=== PATIENT | female | born 1960 | race Caucasian/White ===

== ENCOUNTER 2016-09-17 08:39 | Outpatient (CLI) | payer OTHER | END 2016-09-17 08:40 | disposition home or self-care (01) | LOC: LAB.WCP 08:39 | PROVIDERS: ATTEND Family Medicine | DX: R30.0 Dysuria (principal) | CPT/HCPCS: 87077; 87086 ==

== ENCOUNTER 2016-12-25 08:00 | Outpatient (CLI) | payer OTHER ==
[2016-12-25 19:15] LABS: BASOPHILS # (AUTO) 0.1 10^3/uL (0.0-0.1); BASOPHILS % (AUTO) 1.2 %; EOSINOPHILS # (AUTO) 0.1 10^3/uL (0.0-0.7); EOSINOPHILS % (AUTO) 0.8 %; HGB - HEMOGLOBIN 15.3 g/dL (12.0-16.0); LYMPHOCYTES # (AUTO) 2.6 10^3/uL (1.5-3.5); LYMPHOCYTES % (AUTO) 25.5 %; MEAN CORPUSCULAR HEMOGLOBIN 29.9 pg (27.0-31.0); MEAN CORPUSCULAR HGB CONC 32.5 g/dL (32.0-36.0); MEAN CORPUSCULAR VOLUME 91.9 fL (81.0-99.0); MEAN PLATELET VOLUME 8.9 fL (7.9-10.8); MONOCYTES # (AUTO) 0.7 10^3/uL (0.0-1.0); MONOCYTES % (AUTO) 6.8 %; NEUTROPHILS # (AUTO) 6.7 10^3/uL (1.5-6.6); NEUTROPHILS % (AUTO) 65.7 %; NUCLEATED RED BLOOD CELLS AUTO 0.1 /100WBC; RED BLOOD COUNT 5.12 10^6/uL (4.20-5.40); RED CELL DISTRIBUTION WIDTH 16.8 % (12.0-15.0); UNCORRECTED WHITE BLOOD COUNT 10.1 x10^3/uL; WHITE BLOOD COUNT 10.1 x10^3/uL (4.8-10.8)
[2016-12-25 19:48] LABS: ALBUMIN/GLOBULIN RATIO 1.9 (1.0-2.2); BILIRUBIN,TOTAL 0.6 mg/dL (0.2-1.0); BUN - BLOOD UREA NITROGEN 12 mg/dL (6-20); CALCIUM 9.4 mg/dL (8.5-10.3); CARBON DIOXIDE - CO2 27 mmol/L (21-32); CHLORIDE 100 mmol/L (101-111); CHOL/HDL RATIO 2.5 (<4.4); CHOLESTEROL 200 mg/dL; CREATININE 0.7 mg/dL (0.4-1.0); GFR - MDRD 87 (>89); GLUCOSE 92 mg/dL (70-100); HDL CHOLESTEROL 79 mg/dL; LDL/HDL RATIO 1.3 (<4.4); SODIUM 138 mmol/L (135-145); TOTAL PROTEIN 7.2 g/dL (6.7-8.2); TRIGLYCERIDES 85 mg/dL; VLDL CHOLESTEROL 17 mg/dL
[2016-12-25 20:32] LABS: HEMOGLOBIN A1C 0.6 g/dL
== END 2016-12-25 08:01 | disposition home or self-care (01) ==
LOC: LAB.WCP 08:00
PROVIDERS: ATTEND Family Medicine
DX: Z00.00 Encounter for general adult medical examination without abnormal findings (principal); I95.9 Hypotension, unspecified
CPT/HCPCS: 36415; 80053; 80061; 83036; 84443; 85025

== ENCOUNTER 2017-01-28 18:56 | Emergency (ER) | payer OTHER ==
[2017-01-28] MEDS ORDERED: DEXAMETHASONE 10 MG/ML VIAL PO STA (19:16)
[2017-01-28] MEDS ORDERED: HYDROcod/ACETAM 5/325 MG TABLET PO STA (19:16)
[2017-01-28] MEDS ORDERED: oxyCODONE 5 MG TABLET PO STA (19:20)
--- NOTE | 2017-01-28 19:27 | ED Physician Documentation ---
History of Present Illness - Stated complaint Stated Complaint: LT HAND PX - Chief complaint Chief Complaint: Ext Problem - History obtained from History obtained from: Patient - History of Present Illness Timing: How many days ago (several) Pain level max: 8 Pain level now: 8 Improved by: rest Worsened by: movement - Additonal information Additional information: Patient is a 56-year-old female who states that she has severe osteoarthritis in the left wrist and it has been swelling and painful over the past 2 days. Denies any injury. Denies any fevers. No redness. No drainage. Took Aleve without relief. Has used a brace before and this did help, but does not know where her brace is. 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 Neuro: Craniotomy - Present Medications Home Medications: Ambulatory Orders Medication Instructions Recorded Confirmed Paroxetine HCl 20 mg PO DAILY 07/28/14 01/28/17 Valacyclovir HCl [Valacyclovir] 500 mg PO BID 07/28/14 01/28/17 Prednisone 40 mg PO DAILY #10 tablet 01/28/17 oxyCODONE [Roxicodone] 5 mg PO Q4-6H PRN #10 tablet 01/28/17 - Allergies Allergies/Adverse Reactions: Allergies Allergy/AdvReac Type Severity Reaction Status Date / Time Latex, Natural Rubber Allergy Rash Verified 01/28/17 19:02 phenytoin [From Dilantin] Allergy Edema Verified 01/28/17 19:02 morphine AdvReac Severe Hallucinati Verified 02/06/15 04:01 ons - Social History Does the pt smoke?: Yes Smoking Status: Current every day smoker Does the pt drink ETOH?: Yes Does the pt have substance abuse?: No - Immunizations Immunizations are current?: No - POLST Patient has POLST: No PD ED PE NORMAL - Vitals Vital signs reviewed: Yes - General General: Alert and oriented X 3, Well developed/nourished, Other (appears in pain) - HEENT HEENT: PERRL, Moist mucous membranes - Neck Neck: Supple, no meningeal sign - Cardiac Cardiac: RRR - Respiratory Respiratory: No respiratory distress, Clear bilaterally - Derm Derm: Warm and dry - Extremities Extremities: Other (Tender to palpation diffusely about the left wrist, there is mild swelling and warmth. There is no erythema. Limited range of motion secondary to pain. No significant joint effusion. Neurovascularly intact) - Neuro Neuro: Alert and oriented X 3 - Psych Psych: Normal mood, Normal affect Results - Vitals Vitals: Vital Signs - 24 hr 01/28/17 01/28/17 19:00 19:34 Temperature 36.8 C 37.1 C Heart Rate 69 86 Respiratory 16 17 Rate Blood Pressure 147/78 H 148/85 H O2 Saturation 98 97 Oxygen O2 Source Room air PD MEDICAL DECISION MAKING - ED course Complexity details: considered differential, d/w patient, d/w family ED course: Patient is a 56-year-old female who presents to the emergency department for left wrist pain and swelling. History of severe osteoarthritis. We did discuss potential joint aspiration to rule out any evidence of septic joint, patient declines this at this time. Will place her on pain medication, steroids and a wrist splint for home. Does not have a history of gout. Patient is well-appearing, nontoxic. Afebrile. Patient counseled regarding signs and symptoms for which I believe and urgent re-evaluation would be necessary. Patient with good understanding of and agreement to plan and is comfortable going home at this time This document was made in part using voice recognition software. While efforts are made to proofread this document, sound alike and grammatical errors may occur. Departure - Departure Disposition: 01 Home, Self Care Clinical Impression: Osteoarthritis Qualifiers: Osteoarthritis location: wrist Osteoarthritis type: unspecified Laterality: left Qualified Code(s): M19.032 - Primary osteoarthritis, left wrist Condition: Good Instructions: ED Degenerative Joint Disease Follow-Up: Shona Garrido MD [Primary Care Provider] - Within 1 week Prescriptions: oxyCODONE [Roxicodone] 5 mg PO Q4-6H PRN #10 tablet PRN Reason: wrist pain Prednisone 40 mg PO DAILY #10 tablet Comments: Return if you worsen. This should improve over the next few days. Wear the splint as needed for comfort. If you are not improving or are worsening, return here for further evaluation as this may be signs of a more serious issue including an infection in your wrist. Do not drink alcohol or drive while on narcotic pain medicine. Note that many narcotic pain relievers also contain tylenol/acetaminophen. Please ensure that your total dose of acetaminophen from all sources does not exceed 3 grams (3000mg) per day. You may constipated on this medication, take a stool softener such as "Colace" twice a day while you are on it. Also recommend a yjlo-kvw-bnjshkb laxative such as senna or MiraLAX any day that you do not have a bowel movement. If you received narcotic pain medication in the emergency department, do not drive or operate machinery for the next 24 hours. Discharge Date/Time: 01/28/17 19:39
[2017-01-28] MEDS ORDERED: oxyCODONE 5 MG TABLET ONE (19:31)
[2017-01-28] MEDS ORDERED: DEXAMETHASONE 10 MG/ML VIAL ONE (19:31)
[2017-01-28] MEDS ORDERED: CHERRY SYRUP 10 ML UDC PO ONE (19:31)
[2017-01-28 19:35] VITALS: BP 148/85
== END 2017-01-28 19:39 | disposition home or self-care (01) ==
LOC: ED 18:56
DX: M19.032 Primary osteoarthritis, left wrist (principal); M79.7 Fibromyalgia; F17.200 Nicotine dependence, unspecified, uncomplicated
CPT/HCPCS: 99283; A9270

== ENCOUNTER 2017-12-01 07:50 | Outpatient (CLI) | payer OTHER ==
[2017-12-01] MEDS ORDERED: GADOBUTROL 7.5 MMOL/7.5 ML VIAL ONE (09:01)
[2017-12-01] MEDS ORDERED: GADOBUTROL 7.5 MMOL/7.5 ML VIAL IVP ONE (09:16)
--- NOTE | 2017-12-01 11:58 | CT Report ---
Procedure Date: 12/01/2017 Accession Number: [id number] / [id number] Procedure: CT - Sinuses CPT Code: FULL RESULT: EXAM: CT SINUS EXAM DATE: 12/01/2017 08:05 AM. HISTORY: Congestion, sinus pain and burning, history of brain tumor COMPARISONS: None. TECHNIQUE: Routine multi-axial CT imaging performed through the sinuses. Iodinated IV contrast: None. Reconstructions: Coronal. In accordance with CT protocol optimization, one or more of the following dose reduction techniques were utilized for this exam: automated exposure control, adjustment of mA and/or KV based on patient size, or use of iterative reconstructive technique. FINDINGS: RIGHT Frontal: Normal. Ethmoid: Normal. Maxillary: Normal. Sphenoid: Normal. Drainage Pathways: The frontal recess, ostiomeatal complex and sphenoethmoidal recess are patent and normal. LEFT Frontal: Normal. Ethmoid: Normal. Maxillary: Normal. Sphenoid: Normal. Drainage Pathways: The frontal recess, ostiomeatal complex and sphenoethmoidal recess are patent and normal. Nasal Cavity: Nasal septal deviation to the right with a large right sided spur Osseous Structures: Unremarkable. Orbits: Unremarkable. Other: None. IMPRESSION: Clear paranasal sinuses. Nasal septal deviation to the right with a large right sided spur. RADIA
--- NOTE | 2017-12-01 22:03 | MRI Report ---
Procedure Date: 12/01/2017 Accession Number: [id number] / [id number] Procedure: MRI - Brain W/WO CPT Code: FULL RESULT: EXAM: MRI BRAIN WITHOUT AND WITH CONTRAST EXAM DATE: 12/01/2017 09:28 AM. CLINICAL HISTORY: 57-year-old with chronic sinusitis type symptoms and headache with visual disturbances. Evaluate for intracranial pathology. COMPARISON: None. TECHNIQUE: Multiplanar, multisequence T1-weighted and fluid-sensitive MR sequences of the brain were performed. Sequences optimized for routine evaluation. Other: None. IV Contrast: 6.5 cc Gadavist. FINDINGS: Brain Volume: Normal for age. Parenchyma: No acute parenchymal hemorrhage, mass, or midline shift seen. The postsurgical changes seen within the posterior fossa. There is a linear area of FLAIR signal hyperintensity seen extending from the peripheral right frontal lobe to the right lateral ventricle that may represent prior TRANSMITTER CHIEF shunt catheter tract. There is mild bilateral areas of T2/FLAIR signal hyperintensity seen involving the supratentorial brain parenchyma. There is patchy FLAIR signal hyperintensity seen within the isael. There is patchy FLAIR signal hyperintensity seen involving the left cerebellum and medial right cerebellum and may be postsurgical. There are punctate foci of hemosiderin deposition involving the inferior vermis and left cerebellum that may be related to prior radiation treatment. No evidence of restricted diffusion seen to suggest acute infarct. No abnormal enhancement. Ventricles/Cisterns: Post surgical changes of suboccipital craniectomy. There is slight underlying dural thickening and enhancement that may be postsurgical. There is no convincing evidence of abnormal extra-axial fluid collection/mass seen. Ventricles appear age appropriate. Orbits: Symmetric and unremarkable. Sella Turcica: The pituitary gland, cavernous sinuses, suprasellar cistern and optic chiasm are unremarkable. IAC: Symmetric and unremarkable. Vasculature: Normal signal flow void is seen in the major arterial structures at the skull base. The dural sinuses are patent and enhance normally. Sinuses: No acute sinus disease. Bones: Postsurgical changes. Other: None. IMPRESSION: 1. Post surgical changes of suboccipital craniectomy with slight underlying dural thickening and enhancement that may be postsurgical. 2. There are post surgical changes involving the posterior fossa with no discrete mass or masslike enhancement seen. 3. No acute infarct, acute intracranial hemorrhage, definite mass, hydrocephalus, or definite abnormal postcontrast enhancement. 4. There are mild white matter changes seen that may represent sequela of chronic small vessel schema disease. 5. There are punctate foci of hemosiderin deposition seen within the vermis and left cerebellum. Given prior postsurgical changes in the posterior fossa these may represent microhemorrhages from prior radiation treatment. Alternatively these may represent microhemorrhages from hypertension or old hemorrhagic lacunar infarcts. RADIA
== END 2017-12-01 07:51 | disposition home or self-care (01) ==
LOC: DI 07:50
PROVIDERS: ATTEND Family Medicine
DX: J32.9 Chronic sinusitis, unspecified (principal); J34.2 Deviated nasal septum; G43.009 Migraine without aura, not intractable, without status migrainosus; H53.9 Unspecified visual disturbance; C71.9 Malignant neoplasm of brain, unspecified; D32.9 Benign neoplasm of meninges, unspecified
CPT/HCPCS: 70486; 70553; A9585

== ENCOUNTER 2018-03-01 13:02 | Outpatient (CLI) | payer OTHER | END 2018-03-01 13:03 | disposition home or self-care (01) | LOC: SC 13:02 | PROVIDERS: ATTEND Internal Medicine Pulmonary Disease | DX: G47.33 Obstructive sleep apnea (adult) (pediatric) (principal) | CPT/HCPCS: 99203; 99212 ==

== ENCOUNTER 2018-04-06 20:33 | Outpatient (CLI) | payer OTHER | END 2018-04-06 20:34 | disposition home or self-care (01) | LOC: SC 20:33 | PROVIDERS: ATTEND Internal Medicine Pulmonary Disease | DX: G47.33 Obstructive sleep apnea (adult) (pediatric) (principal); G47.61 Periodic limb movement disorder | CPT/HCPCS: 95810 ==

== ENCOUNTER 2018-05-12 15:11 | Outpatient (CLI) | payer OTHER, MEDICARE ==
--- NOTE | 2018-05-13 08:45 | Mammography Report ---
Reason: SCREENING MAMMO Procedure Date: 05/12/2018 Accession Number: [id number] / [id number] Procedure: ENDER - Screening Mammo w/Cem CPT Code: FULL RESULT: EXAM: Screening Mammo w/Cem DATE: 05/12/2018 3:57 PM CLINICAL HISTORY: Screening encounter. History of early menses. History of benign breast biopsy. TECHNIQUE: Bilateral CC and MLO views were obtained. COMPARISON: 02/09/2017 through 10/14/2012. FINDINGS: The breasts demonstrate heterogeneously dense fibroglandular parenchyma bilaterally. A biopsy marker and stable postbiopsy changes are seen in the left breast. No suspicious masses, clustered microcalcifications, or regions of architectural distortion are identified. IMPRESSION: Benign findings RECOMMENDATION: Routine annual screening unless otherwise clinically indicated. BIRADS CATEGORY 2: Benign findings STANDARD QUALIFYING STATEMENTS: 1. This examination was not reviewed with the aid of Computer-Aided Detection (CAD). 2. A negative or benign imaging report should not preclude biopsy if clinically suspicious findings are present. 3. Dense breasts may obscure an underlying neoplasm. 4. This examination was reviewed with the aid of 3D breast imaging (tomosynthesis).
== END 2018-05-12 15:12 | disposition home or self-care (01) ==
LOC: DI 15:11
DX: Z12.31 Encounter for screening mammogram for malignant neoplasm of breast (principal)
CPT/HCPCS: 77063; 77067

== ENCOUNTER 2018-07-19 12:47 | Outpatient (CLI) | payer OTHER, MEDICARE | END 2018-07-19 12:48 | disposition home or self-care (01) | LOC: SC 12:47 | PROVIDERS: ATTEND Nurse Practitioner Family | DX: G47.33 Obstructive sleep apnea (adult) (pediatric) (principal); G47.61 Periodic limb movement disorder | CPT/HCPCS: 99212; 99214 ==

== ENCOUNTER 2018-09-06 09:46 | Emergency (ER) | payer OTHER, MEDICARE ==
[2018-09-06] MEDS ORDERED: METOCLOPRAMIDE 10 MG/2 ML VIAL IVP STA (12:17)
[2018-09-06] MEDS ORDERED: DEXAMETHASONE 10 MG/ML VIAL IVP STA (12:17)
[2018-09-06] MEDS ORDERED: diphenhydrAMINE INJ 50 MG/ML VIAL IVP STA (12:17)
[2018-09-06] MEDS ORDERED: SODIUM CHLORIDE 0.9% 1,000 ML IV ONE (12:17)
--- NOTE | 2018-09-06 12:20 | ED Physician Documentation ---
PD HPI HEADACHE - Stated complaint Stated Complaint: TREVINO - Chief complaint Chief Complaint: Neuro - History obtained from History obtained from: Patient - History of Present Illness Timing - onset: Other (This is a 57-year-old woman with history of chronic migraines. 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 Since then she is had worse headaches which are acutely worse over the last couple of weeks and especially in the last 3 days. What was intermittent is now constant for the last 3 days. She describes burning pain over the left maxillary sinus radiating back to the left occiput. She does think it might be related to her CPAP which she has been on for a few weeks now. She describes no sinus congestion. She wonders if she has had a fever but none of been measured, and she also has hot flashes so she is not sure. She noted a facial droop on the left over the last day or 2. She is tried howe-wrz-pbzfvue medications without relief.) Review of Systems Constitutional: reports: Sweats. denies: Chills Ears: reports: Ear pain Nose: reports: Sinus pressure / pain. 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 - Present Medications Home Medications: Ambulatory Orders Medication Instructions Recorded Confirmed Paroxetine HCl 20 mg PO DAILY 07/28/14 01/28/17 Valacyclovir HCl [Valacyclovir] 500 mg PO BID 07/28/14 01/28/17 SUMAtriptan [Imitrex] 25 mg PO BID PRN #20 tablet 09/06/18 - Allergies Allergies/Adverse Reactions: Allergies Allergy/AdvReac Type Severity Reaction Status Date / Time Latex, Natural Rubber Allergy Rash Verified 09/06/18 12:00 phenytoin [From Dilantin] Allergy Edema Verified 09/06/18 12:00 morphine AdvReac Severe Hallucinati Verified 09/06/18 12:00 ons - Social History Does the pt smoke?: Yes Smoking Status: Current every day smoker Does the pt drink ETOH?: Yes ETOH Use: Beer, Liquor Does the pt have substance abuse?: No - Family History Family history: reports: Non contributory - Immunizations Immunizations are current?: No - POLST Patient has POLST: No PD ED PE NORMAL - Vitals Vital signs reviewed: Yes - General General: Alert and oriented X 3, No acute distress - HEENT HEENT: PERRL, EOMI - Neck Neck: Supple, no meningeal sign, No bony TTP - Cardiac Cardiac: RRR, No murmur - Respiratory Respiratory: No respiratory distress, Clear bilaterally - Abdomen Abdomen: Normal bowel sounds, Soft, Non tender - Back Back: No CVA TTP, No spinal TTP - Derm Derm: Normal color, Warm and dry - Extremities Extremities: No edema, No calf tenderness / cord - Neuro Neuro: Alert and oriented X 3, No sensory deficit, Other (She has a slight left facial droop which spares the forehead. There is no weakness in the upper or lower extremities on either side.) Eye Opening: Spontaneous Motor: Obeys Commands Verbal: Oriented GCS Score: 15 - Psych Psych: Normal mood, Normal affect Results - Vitals Vitals: Vital Signs - 24 hr 09/06/18 09/06/18 09/06/18 09:50 12:03 13:59 Temperature 36.7 C Heart Rate 111 H 95 72 Respiratory 18 18 14 Rate Blood Pressure 147/90 H 124/96 H 106/71 O2 Saturation 100 98 94 Oxygen O2 Source Room air - Rads (name of study) CT Head Radiology: EMP read contemporaneously (No acute intracranial abnormality. 1.2 cm hypodense focus of both the posterior inferior left occipital lobe could represent evolving encephalomalacia and less likely recurrent mass, consider follow-up MRI.) PD MEDICAL DECISION MAKING - ED course Complexity details: reviewed old records (MRI from 11/27 reviewed: post surgical chgs, white matter dz, hemosiderin.) ED course: 57-year-old woman with history of migraines and kind of a complicated surgical/neurosurgical history presents with a worsening headache. CT imaging is shown. She had complete relief of her headache with Reglan and Benadryl here. Departure - Departure Disposition: 01 Home, Self Care Clinical Impression: Migraine Qualifiers: Migraine type: without aura Status migrainosus presence: with status migrainosus Intractability: not intractable Qualified Code(s): G43.001 - Migraine without aura, not intractable, with status migrainosus Condition: Good Record reviewed to determine appropriate education?: Yes Instructions: ED Headache Migraine, Imitrex Prescriptions: SUMAtriptan [Imitrex] 25 mg PO BID PRN #20 tablet PRN Reason: Headache Comments: As discussed on your CAT scan from today you have a: 1.2 cm hypodense focus above the posterior inferior left occipital lobe could represent evolving encephalomalacia and less likely recurrent mass, consider follow-up MRI. Call your doctor to arrange a follow-up appointment, make the next available appointment. In the interim, return anytime if worse or if new symptoms develop.
[2018-09-06 14:00] VITALS: BP 106/71
--- NOTE | 2018-09-06 14:05 | CT Report ---
Reason: headache Procedure Date: 09/06/2018 Accession Number: [id number] / [id number] Procedure: CT - HEAD WO CPT Code: FULL RESULT: EXAM: CT HEAD EXAM DATE: 09/06/2018 01:27 PM. CLINICAL HISTORY: Headache, history of brain cancer with 2 surgeries. COMPARISON: SINUSES 12/01/2017 8:02 AM BRAIN W/WO 12/01/2017 9:11 AM. TECHNIQUE: Multiaxial CT images were obtained from the foramen magnum to the vertex. Reformats: Sagittal and coronal. IV contrast: None. In accordance with CT protocol optimization, one or more of the following dose reduction techniques were utilized for this exam: automated exposure control, adjustment of mA and/or KV based on patient size, or use of iterative reconstructive technique. FINDINGS: Parenchyma: No acute intracranial hemorrhage identified. There is possible evolving encephalomalacia or other hypodensity about the left inferior posterior occipital lobe perhaps best seen on series 7, image 11 measuring 1.2 cm in diameter and not well seen on prior MRI. No white matter disease clearly identified. Extraaxial Spaces: Normal for age. No subdural or epidural collections identified. Ventricles: Normal in size and position. Sinuses and Orbits: Imaged paranasal sinuses, orbits, and mastoids show no significant abnormality. Bones: Postsurgical changes from suboccipital craniotomy again present. Hardware overlies the craniotomy defect about the superior flap. The craniotomy defect remains uncovered with bone more inferiorly. Other: None. IMPRESSION: 1. No acute intracranial hemorrhage or hydrocephalus. 2. 1.2 cm hypodense focus about the posterior inferior left occipital lobe just above the tentorium not well seen on prior MRI and could represent evolving encephalomalacia, less likely recurrent mass. Repeat MRI may be considered. RADIA
== END 2018-09-06 14:37 | disposition home or self-care (01) ==
LOC: ED 09:46
DX: G43.001 Migraine without aura, not intractable, with status migrainosus (principal); F17.200 Nicotine dependence, unspecified, uncomplicated; Z98.890 Other specified postprocedural states
CPT/HCPCS: 70450; 96361; 96374; 99283; 99284; J1200; J2765

== ENCOUNTER 2018-09-24 14:56 | Outpatient (CLI) | payer OTHER, MEDICARE ==
[2018-09-24] MEDS ORDERED: GADOBUTROL 7.5 MMOL/7.5 ML VIAL ONE (16:11)
[2018-09-24] MEDS ORDERED: GADOBUTROL 7.5 MMOL/7.5 ML VIAL IV ONE (17:03)
--- NOTE | 2018-09-26 11:00 | MRI Report ---
Reason: MENINGIOMA,COMMON MIGRAINE Procedure Date: 09/24/2018 Accession Number: [id number] / [id number] Procedure: MRI - Brain W/WO CPT Code: FULL RESULT: EXAM: MRI BRAIN WITHOUT AND WITH CONTRAST EXAM DATE: 09/24/2018 04:15 PM. CLINICAL HISTORY: 57-year-old woman with meningioma and migraine headache. COMPARISON: BRAIN W/WO 12/01/2017 9:11 AM HEAD W/O 09/06/2018 1:24 PM. TECHNIQUE: Multiplanar, multisequence T1-weighted and fluid-sensitive MR sequences of the brain were performed. Sequences optimized for routine evaluation. Other: None. IV Contrast: 5.5 cc Gadavist. FINDINGS: Parenchyma: FLAIR hyperintensity present in the medial posterior cerebellar hemispheres, left side greater than right, stable compared to the 12/01/2017 exam and consistent with postsurgical change. No abnormal enhancement. The remainder of the parenchyma demonstrates a small surgical tract in the right frontal lobe with surrounding FLAIR hyperintensity, likely gliosis and unchanged from the 2018 exam. There is also mild burden of nonspecific FLAIR hyperintensities in the deep cerebral and periventricular white matter as well as the dorsal isael, unchanged. No abnormal enhancement. Susceptibility weighted sequence demonstrates remote micro hemorrhages in the cerebellar hemispheres bilaterally. No evidence of acute infarct. Pituitary: Unremarkable. Ventricles: The supratentorial ventricles are nearly symmetric and normal in size, unchanged. The fourth ventricle is mildly dilated relative to the supratentorial ventricles, as before. Extra-axial Spaces: Small convex focus of enhancement is present along the inferior surface of the proximal left transverse sinus (image 41, series 1002) that measures approximately 5 mm in thickness and 13 mm in base diameter, unchanged from the 12/01/2017 exam. Enhancement is slightly less than adjacent venous enhancement, suspicious for residual meningioma. Otherwise, postsurgical changes are present in the posterior fossa. Orbits: Unremarkable. Sinuses: Paranasal sinuses and mastoid air cells are clear. Major Vascular Flow Voids: Intact. Dural Venous Sinuses and Major Central Veins: Patent on post-contrast images. Other: Status post occipital craniotomy and suboccipital craniectomy, better demonstrated on the 09/06/2018 CT. IMPRESSION: 1. Postsurgical changes in the posterior fossa, compatible with clinical history of meningioma status post resection. Small focus of enhancement is present along the inferior surface of the proximal left transverse sinus/tentorium, unchanged from 12/01/2017 exam and suspicious for small residual meningioma. RADIA
== END 2018-09-24 14:57 | disposition home or self-care (01) ==
LOC: DI 14:56
PROVIDERS: ATTEND Family Medicine
DX: D32.9 Benign neoplasm of meninges, unspecified (principal); G43.009 Migraine without aura, not intractable, without status migrainosus
CPT/HCPCS: 70553; A9585

== ENCOUNTER 2018-12-22 21:51 | Emergency (ER) | payer MEDICARE, OTHER ==
--- NOTE | 2018-12-22 22:19 | ED Physician Documentation ---
History of Present Illness - Stated complaint Stated Complaint: SLURRING WORDS/FALL - Chief complaint Chief Complaint: General - History obtained from History obtained from: Patient, Family (spouse) - History of Present Illness Timing: Today Pain level max: 0 Pain level now: 0 Improved by: nothing Worsened by: no exacerbating factors - Additonal information Additional information: patient's spouse says patient "fell while with her friend, I wasn't there". Cha miller says she fell while getting off a bus at approximately 7:30 PM tonight after [place]. Patient says she had one shot of alcohol tonight. is concerned because of her head injury and slurred speech, particularly in light of her h/o brain CA. Patient says she does not remember details about the fall, but patient and both say that she has had "equilibrium issues" for months. Review of Systems Constitutional: reports: Reviewed and negative Eyes: reports: Reviewed and negative Cardiac: reports: Reviewed and negative Respiratory: reports: Reviewed and negative GI: reports: Nausea. denies: Abdominal Pain, Vomiting : denies: Dysuria, Frequency Musculoskeletal: reports: Reviewed and negative Neurologic: reports: Difficulty speaking (slurred speech), Other (unknown if head injury). 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 Neuro: Craniotomy - Present Medications Home Medications: Ambulatory Orders Medication Instructions Recorded Confirmed Paroxetine HCl 20 mg PO DAILY 07/28/14 01/28/17 Valacyclovir HCl [Valacyclovir] 500 mg PO BID 07/28/14 01/28/17 SUMAtriptan [Imitrex] 25 mg PO BID PRN #20 tablet 09/06/18 - Allergies Allergies/Adverse Reactions: Allergies Allergy/AdvReac Type Severity Reaction Status Date / Time Latex, Natural Rubber Allergy Rash Verified 09/06/18 12:00 phenytoin [From Dilantin] Allergy Edema Verified 09/06/18 12:00 morphine AdvReac Severe Hallucinati Verified 09/06/18 12:00 ons - Social History Does the pt smoke?: Yes Smoking Status: Current every day smoker Does the pt drink ETOH?: Yes Does the pt have substance abuse?: No - Immunizations Immunizations are current?: No - POLST Patient has POLST: No PD ED PE NORMAL - Vitals Vital signs reviewed: Yes - General General: No acute distress, Well developed/nourished, Other (awake, alert but easily distracted (repeatedly interrupts HPI/ROS to express concern for a crying baby that is in an adjacent room; at times she seems uninterested in conversing with me)) - HEENT HEENT: Atraumatic, PERRL, EOMI, Moist mucous membranes, Other (horizontal nystagmus with leftward gaze) - Neck Neck: Supple, no meningeal sign, Other (mild mid-level and midline tenderness) - Cardiac Cardiac: RRR, No murmur - Respiratory Respiratory: No respiratory distress, Clear bilaterally - Abdomen Abdomen: Soft, Non tender - Derm Derm: Normal color, Warm and dry - Extremities Extremities: No deformity, No tenderness to palpate, Normal ROM s pain, No edema - Neuro Neuro: event organizer 2-12 intact, No motor deficit, No sensory deficit Eye Opening: To Voice Motor: Obeys Commands Verbal: Oriented GCS Score: 14 PD ED PE EXPANDED - Neuro Neuro: Dysarthria (speech is slurred) Results - Vitals Vitals: Vital Signs - 24 hr 12/22/18 12/22/18 12/22/18 22:09 23:05 23:34 Temperature 36.4 C L Heart Rate 66 65 69 Respiratory 17 17 17 Rate Blood Pressure 98/57 L 115/71 100/70 O2 Saturation 97 99 99 Oxygen O2 Source Room air - EKG (time done) No standard instances Rate: Rate (enter#) (65) Rhythm: NSR [place]: Normal Intervals: Normal MO QRS: Normal Ischemia: Normal ST segments - Labs Labs: Laboratory Tests 12/22/18 12/22/18 12/22/18 20:45 20:45 22:48 WBC 7.3 RBC 4.77 Hgb 14.5 Hct 45.2 MCV 94.8 MCH 30.4 MCHC 32.1 RDW 14.2 Plt Count 368 MPV 9.7 Neut # (Auto) 3.3 Lymph # (Auto) 3.0 Grady # (Auto) 0.8 Eos # (Auto) 0.1 Baso # (Auto) 0.1 Absolute Nucleated RBC 0.00 Nucleated RBC % 0.0 Sodium 141 Potassium 3.5 Chloride 104 Carbon Dioxide 28 Anion Gap 9.0 BUN 7 Creatinine 0.5 Estimated GFR (MDRD) 127 Glucose 77 Calcium 9.1 Total Bilirubin 1.1 H AST 15 ALT 15 Alkaline Phosphatase 68 Total Protein 7.0 Albumin 4.2 Globulin 2.8 Albumin/Globulin Ratio 1.5 Lipase 36 Urine Color YELLOW Urine Clarity CLEAR Urine pH 6.5 Ur Specific [place] <=1.005 Urine Protein NEGATIVE Urine Glucose (UA) NEGATIVE Urine Ketones NEGATIVE Urine Occult Blood NEGATIVE Urine Nitrite NEGATIVE Urine Bilirubin NEGATIVE Urine Urobilinogen 0.2 (NORMAL) Ur Leukocyte Esterase NEGATIVE Ur Microscopic Review NOT INDICATED Urine Culture Comments NOT INDICATED Ethyl Alcohol 216.2 - Rads (name of study) CT head Radiology: Prelim report reviewed, See rad report CT cervical spine Radiology: Prelim report reviewed, See rad report PD MEDICAL DECISION MAKING - ED course Complexity details: reviewed results, re-evaluated patient, considered differential, d/w patient, d/w family ED course: reassuring test results. Alcohol (ethanol) level returns significantly higher than would be expected for one shot of alcohol. Results d/w patient and spouse. Patient requesting discharge home and spouse is comfortable with taking her home . Departure - Departure Disposition: 01 Home, Self Care Clinical Impression: Alcohol intoxication Qualifiers: Complication of substance-induced condition: uncomplicated Qualified Code(s): F10.920 - Alcohol use, unspecified with intoxication, uncomplicated Fall Qualifiers: Encounter type: initial encounter Qualified Code(s): W19.XXXA - Unspecified fall, initial encounter Condition: Good Instructions: ED Alcohol Intoxication, ED Fall Dizziness Weakn Balance Comments: Follow up with your primary medical care provider, call to arrange for next available appointment. Further testing might be necessary. Discharge Date/Time: 12/23/18 00:12
[2018-12-22 22:51] LABS: BASOPHILS # (AUTO) 0.1 10^3/uL (0.0-0.1); BASOPHILS % (AUTO) 1.5 %; EOSINOPHILS # (AUTO) 0.1 10^3/uL (0.0-0.7); EOSINOPHILS % (AUTO) 1.9 %; HGB - HEMOGLOBIN 14.5 g/dL (12.0-16.0); LYMPHOCYTES % (AUTO) 41.1 %; MEAN CORPUSCULAR HEMOGLOBIN 30.4 pg (27.0-31.0); MEAN CORPUSCULAR HGB CONC 32.1 g/dL (32.0-36.0); MEAN CORPUSCULAR VOLUME 94.8 fL (81.0-99.0); MEAN PLATELET VOLUME 9.7 fL (7.9-10.8); MONOCYTES # (AUTO) 0.8 10^3/uL (0.0-1.0); MONOCYTES % (AUTO) 10.2 %; NEUTROPHILS # (AUTO) 3.3 10^3/uL (1.5-6.6); NEUTROPHILS % (AUTO) 45.2 %; PLT - PLATELET COUNT 368 10^3/uL (130-450); RED BLOOD COUNT 4.77 10^6/uL (4.20-5.40); RED CELL DISTRIBUTION WIDTH 14.2 % (12.0-15.0); WHITE BLOOD COUNT 7.3 x10^3/uL (4.8-10.8)
[2018-12-22 22:58] LABS: BILIRUBIN,URINE NEGATIVE (NEGATIVE); GLUCOSE, URINE (UA) NEGATIVE (NEGATIVE); KETONES,URINE (UA) NEGATIVE (NEGATIVE); LEUKOCYTE ESTERASE, URINE NEGATIVE (NEGATIVE); NITRITE,URINE NEGATIVE (NEGATIVE); OCCULT BLOOD,URINE NEGATIVE (NEGATIVE); PH,URINE 6.5 PH (5.0-7.5); PROTEIN,URINE NEGATIVE (NEGATIVE); UROBILINOGEN,URINE 0.2 (NORMAL) E.U./dL (NORMAL)
[2018-12-22 23:00] LABS: CLARITY,URINE CLEAR (CLEAR)
[2018-12-22 23:04] LABS: ALBUMIN 4.2 g/dL (3.2-5.5); ALBUMIN/GLOBULIN RATIO 1.5 (1.0-2.2); BILIRUBIN,TOTAL 1.1 mg/dL (0.2-1.0); CALCIUM 9.1 mg/dL (8.5-10.3); CREATININE 0.5 mg/dL (0.4-1.0)
[2018-12-22 23:35] VITALS: BP 100/70
--- NOTE | 2018-12-22 23:39 | CT Report ---
Reason: neck tenderness, fall Procedure Date: 12/22/2018 Accession Number: [id number] / [id number] Procedure: CT - CERVICAL SPINE WO CPT Code: FULL RESULT: EXAM: CT CERVICAL SPINE WITHOUT CONTRAST DATE: 12/22/2018 11:00 PM. HISTORY: Neck tenderness, fall. COMPARISONS: BRAIN W/WO 09/24/2018 3:50 PM BRAIN W/WO 12/01/2017 9:11 AM. TECHNIQUE: Thin-section axial images were acquired of the cervical spine without contrast. Post-processing: Coronal and sagittal reformats. Other: None. In accordance with CT protocol optimization, one or more of the following dose reduction techniques were utilized for this exam: automated exposure control, adjustment of mA and/or KV based on patient size, or use of iterative reconstructive technique. FINDINGS: Alignment: 2 mm anterolisthesis of C2-C3. Otherwise, alignment is intact. Bones: Status post inferior occipital craniotomy and C1-C2 laminectomies. Degenerative changes of the bilateral atlanto-occipital joints, greater on the left. Interspace Levels/Facets: C1-C2: Unremarkable. C2-C3: Unremarkable. C3-C4: Mild right facet degeneration. Otherwise, unremarkable. C4-C5: Unremarkable. C5-C6: Moderate disk degeneration. Otherwise, unremarkable. C6-C7: Moderate left facet joint degeneration. Otherwise, unremarkable. C7-T1: Moderate to severe left facet joint degeneration. Otherwise, unremarkable. Musculature: Normal. No fatty atrophy. Other: The paravertebral and prevertebral soft tissues are unremarkable. The lung apices are clear. IMPRESSION: Postsurgical changes status-post occipital craniotomy and C1 and C2 laminectomies with 2 mm anterolisthesis of C2-C3. No fracture. RADIA
--- NOTE | 2018-12-22 23:48 | CT Report ---
Reason: fall, AMS Procedure Date: 12/22/2018 Accession Number: [id number] / [id number] Procedure: CT - HEAD WO CPT Code: FULL RESULT: EXAM: CT HEAD EXAM DATE: 12/22/2018 11:00 PM. CLINICAL HISTORY: Fall, AMS. History of brain cancer with 2 surgeries COMPARISON: HEAD W/O 09/06/2018 1:24 PM BRAIN W/WO 12/01/2017 9:11 AM. TECHNIQUE: Multiaxial CT images were obtained from the foramen magnum to the vertex. Reformats: Sagittal and coronal. IV contrast: None. In accordance with CT protocol optimization, one or more of the following dose reduction techniques were utilized for this exam: automated exposure control, adjustment of mA and/or KV based on patient size, or use of iterative reconstructive technique. FINDINGS: Parenchyma: No intraparenchymal hemorrhage. No evidence of mass, midline shift, or CT findings of acute infarction. Christiansen-white differentiation is distinct. Similar appearance of the small area of right frontal encephalomalacia subjacent to the right frontal skull defect and 2 cm region of posttreatment change in the left cerebellum. Extraaxial Spaces: Normal for age. No subdural or epidural collections identified. Ventricles: Normal in size and position. Sinuses and Orbits: Imaged paranasal sinuses, orbits, and mastoids show no significant abnormality. Bones: No evidence of fracture. Rightward deviation of the nasal septum. Status post occipital craniotomy with hardware at that superior flap and C1/C2 laminectomies. Right frontal bur hole. Other: None. IMPRESSION: No acute intracranial process. No acute infarct, intracranial hemorrhage, mass, hydrocephalus, or midline shift. No appreciable change in the right frontal lobe encephalomalacia and left cerebellar encephalomalacia/posttreatment change. RADIA
== END 2018-12-23 00:12 | disposition home or self-care (01) ==
LOC: ED 21:51
DX: Z04.3 Encounter for examination and observation following other accident (principal); V78.4XXA Person boarding or alighting from bus injured in noncollision transport accident, initial encounter; F10.920 Alcohol use, unspecified with intoxication, uncomplicated; M50.322 Other cervical disc degeneration at C5-C6 level; Z85.841 Personal history of malignant neoplasm of brain; F17.200 Nicotine dependence, unspecified, uncomplicated
CPT/HCPCS: 36415; 70450; 72125; 80053; 80320; 81001; 81003; 83690; 85025; 87086; 93005; 99284

== ENCOUNTER 2019-02-06 11:47 | Outpatient (CLI) | payer OTHER, MEDICARE ==
[2019-02-06 18:46] LABS: BASOPHILS # (AUTO) 0.1 10^3/uL (0.0-0.1); BASOPHILS % (AUTO) 1.2 %; EOSINOPHILS # (AUTO) 0.3 10^3/uL (0.0-0.7); HGB - HEMOGLOBIN 15.2 g/dL (12.0-16.0); LYMPHOCYTES # (AUTO) 2.1 10^3/uL (1.5-3.5); LYMPHOCYTES % (AUTO) 19.7 %; MEAN CORPUSCULAR HEMOGLOBIN 29.7 pg (27.0-31.0); MEAN CORPUSCULAR HGB CONC 30.8 g/dL (32.0-36.0); MEAN CORPUSCULAR VOLUME 96.7 fL (81.0-99.0); MEAN PLATELET VOLUME 9.6 fL (7.9-10.8); MONOCYTES # (AUTO) 0.7 10^3/uL (0.0-1.0); MONOCYTES % (AUTO) 6.8 %; NEUTROPHILS # (AUTO) 7.2 10^3/uL (1.5-6.6); NEUTROPHILS % (AUTO) 68.9 %; PLT - PLATELET COUNT 536 10^3/uL (130-450); RED BLOOD COUNT 5.11 10^6/uL (4.20-5.40); RED CELL DISTRIBUTION WIDTH 14.6 % (12.0-15.0); WHITE BLOOD COUNT 10.4 x10^3/uL (4.8-10.8)
[2019-02-06 20:38] LABS: ALBUMIN 4.5 g/dL (3.2-5.5); ALBUMIN/GLOBULIN RATIO 1.6 (1.0-2.2); ALKALINE PHOSPHATASE 64 IU/L (42-121); ALT ALANINE AMINOTRANSFERASE 16 IU/L (10-60); AST ASPARTATE AMINOTRANSFERASE 17 IU/L (10-42); BILIRUBIN,TOTAL 0.8 mg/dL (0.2-1.0); BUN - BLOOD UREA NITROGEN 14 mg/dL (6-20); CALCIUM 9.8 mg/dL (8.5-10.3); CARBON DIOXIDE - CO2 26 mmol/L (21-32); CHLORIDE 104 mmol/L (101-111); CHOL/HDL RATIO 2.7 (<4.4); CHOLESTEROL 208 mg/dL; CREATININE 0.6 mg/dL (0.4-1.0); GFR - MDRD 103 (>89); GLUCOSE 105 mg/dL (70-100); HDL CHOLESTEROL 76 mg/dL; LDL CHOLESTEROL,CALCULATED 103 mg/dL; LDL/HDL RATIO 1.4 (<4.4); SODIUM 140 mmol/L (135-145); TOTAL PROTEIN 7.4 g/dL (6.7-8.2); VLDL CHOLESTEROL 29 mg/dL
[2019-02-06 22:00] LABS: HB2 TOTAL 16.5 g/dL; HEMOGLOBIN A1C 0.62 g/dL; HEMOGLOBIN A1C % 5.6 % (4.6-6.2)
== END 2019-02-06 23:59 | disposition home or self-care (01) ==
LOC: LAB.WCP 11:47
PROVIDERS: ATTEND Family Medicine
DX: Z00.00 Encounter for general adult medical examination without abnormal findings (principal); F32.9 Major depressive disorder, single episode, unspecified
CPT/HCPCS: 36415; 80053; 80061; 83036; 83721; 84443; 85025

== ENCOUNTER 2019-02-15 10:58 | Outpatient (CLI) | payer MEDICARE, OTHER ==
[2019-02-15 11:51] VITALS: BP 100/70
--- NOTE | 2019-02-15 11:51 | SLEEP CARE CONSULTATION ---
Information from patient questionnaire entered by Dominique Devine. I have reviewed and concur with the information entered by Dominique Devine. This document represents the service I personally performed and the decisions made by me, Harini Phillips, RN, MSN, CLIENT MANAGER [employer]. History of Present Illness Previous diagnosis: Moderate, Obstructive Sleep Apnea-Hypopnea Syndrome AHI: 22.4 Reason for follow up: other (2 MONTH) Equipment type: CPAP Equipment obtained from: [facility] Prior sleep studies: Yes CPAP Compliance Data - Data Reviewed with Patient Average duration of nightly device use: 6H 52M Compliance rate %: 68.3 Current pressure setting (cmH2O): 8-11 Humidity settin Heated hose settin Average residual AHI: 9.7 Central apnea: 0.8 Obstructive apnea: 4.9 Hypopnea: 4.0 Subjective Missed days of use due to: reports: other (nasal dryness and discomfort, migranes ) Patient concerns: reports: nasal congestion, dry mouth, nose, throat (intermittently, more lately - compliance showed the heated hose and humidity recently changed to 5 ), other (headache). denies: aerophagia, mask discomfort, air blowing in eyes, mask leak noise, condensation in mask/hose, epistaxis Observed to snore while using device: No (sleeps separately) Current pressure setting perceived as: too low On therapy, patient: reports: sleeping better ( but no longer rested as before with treatment.). denies: awakening more refreshed, being more awake and alert during the day, more rested overall, drowsiness while driving Initial [place] Sleepiness Scale score: 15 Current [place] Sleepiness Scale score: 8 Allergies and Home Medications Known drug allergies: Yes (see list ) Home medication list reviewed: Yes Allergy and home medication list: Medication Name (generic/name brand) Strength & Dosage Valtrex 500mg tab one daily Paxil 40mg tab one daily Advil (Ibuprofen) 200mg tab two as needed for pain Acetaminophen 325mg tab one as needed for pain Allergies: Radioactive Dye, Morphine, Dilantin Review of Systems Review of systems same as previous: No (increase in migraines / sees neurologist tommorrow) Physical Exam Blood Pressure: 100/70 Cuff size: regular Heart Rate: 82 O2 Saturation: 97 Height: 5 ft 0.5 in Weight: 119 lb 12.8 oz Body Mass Index: 23.0 BMI Classification: Healthy weight Impression and Plan 1. Obstructive Sleep Apnea-Hypopnea Syndrome, moderate, with fair treatment compliance and elevated residual apnea control. Which could be the reason she reports more fatigue. Overall on CPAP therapy, the patient has better sleep quality and is more rested. To reduce dryness symptoms, I showed patient how to reduce heated hose and keep the humidity at maximum on sample device. Rationale for changing settings discussed and WEb printed instructions given. The higher humidity should reduce nasal congestion. I also gave her a sample of saline nasal spray to use prior to CPAP to clear nose of dried secretions to wash off nasal allergens and clear nasal pathway to promote nasal breathing. . In addition, she is to shower at night instead of morning ( or in addition) to wash off body allergens and facilitate nasal drainage. For her cleaning questions, a reference sheet was given and reviewed.To reduce residual AHI, she is to advised to reduce drinking alcohol before bed when doing laundry as it will increase apnea risk. Patient reports she is drinking to relax and due to marriage difficulties. She is going to a counselor for help and feels beneficial. I encouraged her to continue with her counseling to work through her concerns. In addition, I will adjust her autoCPAP to [id number] to reduce residual AHI. Patient advised to contact this office if pressure change uncomfortable. Hopefully the above measures will assist patient to use CPAP more effectively and with improved benefit of treatment. Patient's apnea severity and rationale for treatment to reduce apnea, improve sleep quality and reduce cardiovascular and cerebrovascular events was reviewed. I also reviewed the benefit of consistent device use of CPAP for her depression/anxiety, migraines. * Change CPAP pressure to 10-15 cmH2O * Adjust heated hose * Implement methods to reduce nasal drainage. * Implement methods to reduce residual AHI * Continue counseling * Notify me if snoring with mask or feeling that the pressure is too much or too little * Return for follow up in 2 months, or sooner if concerns arise I spent 100% of this 33 minute visit face to face with the patient with greater than 50% of this was spent time counseling the patient and coordination of care.
== END 2019-02-15 10:59 | disposition home or self-care (01) ==
LOC: SC 10:58
PROVIDERS: ATTEND Nurse Practitioner Family
DX: G47.33 Obstructive sleep apnea (adult) (pediatric) (principal)
CPT/HCPCS: 99214; G0463; 99212

== ENCOUNTER 2019-06-05 15:28 | Outpatient (CLI) | payer OTHER, MEDICARE ==
[2019-06-05 16:46] VITALS: BP 120/80
--- NOTE | 2019-06-05 16:46 | SLEEP CARE CONSULTATION ---
Information from patient questionnaire entered by Sue Márquez. I have reviewed and concur with the information entered by Sue Márquez. This document represents the service I personally performed and the decisions made by me, Harini Phillips, RN, MSN, SECURITY THREAT ANALYST. History of Present Illness Previous diagnosis: Moderate, Obstructive Sleep Apnea-Hypopnea Syndrome AHI: 22.4 Reason for follow up: other (2 month) Equipment type: CPAP Equipment obtained from: [employer] Mask style: Nasal (Dreamwear with chinstrap) Mask brand: Respironics Backup mask available: No (keep current mask when replaced for a spare. ) Last cushion change: a few months HPI additional information: Saline nasal spray reduced nasal congestion used before CPAP. She reduced drinking alcohol before bed. CPAP Compliance Data - Data Reviewed with Patient Average duration of nightly device use: 8.1 Compliance rate %: 78.3 (60 days) Current pressure setting (cmH2O): 10-15 Humidity settin Heated hose settin Average residual AHI: 8.8 Central apnea: 0.9 Obstructive apnea: 4.0 Hypopnea: 3.9 Average large leak: 2 min 36 sec Subjective Patient concerns: reports: mask discomfort, mask leak noise (wakes to mask leaks when sleeps on side as mask dislodges,. ), dry mouth, nose, throat (dry mouth most days ), other (waking to dry reservoir most mornings and wakes her. She is filling her reservoir daily. ). denies: aerophagia, air blowing in eyes, condensation in mask/hose, nasal congestion, epistaxis Observed to snore while using device: No Current pressure setting perceived as: comfortable On therapy, patient: reports: sleeping better, awakening more refreshed (most morning ), being more awake and alert during the day, more rested overall. denies: drowsiness while driving Initial [place] Sleepiness Scale score: 15 Current [place] Sleepiness Scale score: 11 Allergies and Home Medications Known drug allergies: Yes (see list ) Home medication list reviewed: Yes (no changes ) Review of Systems Review of systems same as previous: Yes Physical Exam Blood Pressure: 120/80 Cuff size: regular Heart Rate: 84 O2 Saturation: 97 Height: 5 ft 0.5 in Weight: 129 lb Weight change since last visit: gained 10 pounds Body Mass Index: 24.7 BMI Classification: Healthy weight Impression and Plan 1. Obstructive Sleep Apnea-Hypopnea Syndrome, moderate, with good treatment compliance and elevated residual apnea control. On CPAP therapy, the patient has better sleep quality and is more rested overall. The patients pressure will be changed to autoCPAP 14-18 cmH20 For elevation of residual AHI. Patient advised to contact me if pressure change is uncomfortable so that it can be adjusted. Goals for apnea control discussed. Mask leaks predominately from when patient sleeps on their side can be reduced by using a CPAP pillow. A CPAP pillow sample was shown. This and other styles can be purchased online. Since she is having to tighten her chinstrap so tight it is uncomfortable to keep mouth shut during sleep, I ordered a mask refitting for a full face mask. I showed her mask styles. She would like to try the [employer] full face that is similar to hers except it covers mouth as well. Oral dryness can be reduced by adjusting humidity setting higher to 5 or heated hose lower to 3 or lower. Printed instructions given on how to change humidity and heated hose settings with rationale explaining why to change. Oral dryness can also be reduced by reducing mask leaks. ]Patient advised that chronic oral dryness can affect dental health and advised to follow up with dentist. In addition, there are oral dryness products that can be used to reduce dryness such as Biotene products, Smart mouth rinse and Xylomelts. Patient to discuss best option with dentist. To reduce mask discomfort, she is advised to change mask cushions more frequently. She start with monthly and if needed every 2 weeks. Patient has gained weight and is still at normal weight. She was cautioned not to gain more weight as it could affect her CPAP pressure and cause her to be overweight which can contribute to increased apnea risks and overall health risks. Patient's apnea severity and rationale for treatment to reduce apnea, improve sleep quality and reduce cardiovascular and cerebrovascular events was reviewed. I also reviewed the benefit of consistent device use of CPAP for depression/anxiety. * Change CPAP pressure to 14-18 cmH2O * mask refitting * Implement methods to reduce oral dryness. * Notify me if snoring with mask or feeling that the pressure is too much or too little * Call this office if any problems using CPAP * Return for follow up in 2 months , or sooner if concerns arise Time Spent with Patient (minutes): 33 I spent 100% of this visit face to face with the patient with greater than 50% of this was spent time counseling the patient and coordination of care.
== END 2019-06-05 15:29 | disposition home or self-care (01) ==
LOC: SC 15:28
PROVIDERS: ATTEND Nurse Practitioner Family
DX: G47.33 Obstructive sleep apnea (adult) (pediatric) (principal)
CPT/HCPCS: 99212; 99214

== ENCOUNTER 2019-08-09 15:30 | Outpatient (CLI) | payer OTHER, MEDICARE ==
--- NOTE | 2019-08-09 14:39 | SLEEP CARE CONSULTATION ---
Information from patient questionnaire entered by Sue Márquez. I have reviewed and concur with the information entered by Sue Márquez. This document represents the service I personally performed and the decisions made by me, Harini Phillips, RN, MSN, TRACK SURFACING MACHINE OPERATOR. History of Present Illness Service Date and Time: 08/09/2019 1400 Previous diagnosis: Moderate, Obstructive Sleep Apnea-Hypopnea Syndrome AHI: 22.4 Reason for follow up: other (2 month) Equipment type: CPAP Equipment obtained from: [employer] (getting supplies) Mask style: Full face Mask brand: Respironics (Dreamwear) Backup mask available: No (keep current mask as spare) Last cushion change: unknown - cleaning daily CPAP Compliance Data - Data Reviewed with Patient Average duration of nightly device use: 7.25 Compliance rate %: 70 (60 days) Current pressure setting (cmH2O): 14-18 Humidity settin Heated hose settin Average residual AHI: 13.3 Central apnea: 1.6 Obstructive apnea: 7.0 Hypopnea: 4.6 Average large leak: 10 min 29 sec Subjective Patient concerns: reports: mask discomfort, mask leak noise (leaking around sides of cheeks and wakes frequently to adjust mask ), dry mouth, nose, throat (waking with very dry mouth a few times a week and reservoir dry). denies: aerophagia, air blowing in eyes, condensation in mask/hose, nasal congestion Observed to snore while using device: No Current pressure setting perceived as: comfortable On therapy, patient: reports: sleeping better, being more awake and alert during the day, more rested overall (slightly more rested and fatigued after 5 hours of wakefullness). denies: awakening more refreshed, drowsiness while driving Initial [place] Sleepiness Scale score: 15 Allergies and Home Medications Home medication list reviewed: No (nochanges) Review of Systems Review of systems same as previous: Yes Physical Exam Height: 5 ft 0.5 in Impression and Plan 1. Obstructive Sleep Apnea-Hypopnea Syndrome, moderate, with good treatment compliance and elevated residual AHI apnea control. On CPAP therapy, the patient has better sleep quality, more alert and is slightly more rested overall. The patients pressure will be changed to autoCPAP 16-20 cmH20 For elevation of residual AHI. Patient advised to contact me if pressure change is uncomfortable so that it can be adjusted. Goals for apnea control discussed. Contact [employer] and order mask cushions and change monthly to reduce mask leaks and sleep interruption. Oral dryness can be reduced by adjusting humidity setting higher or heated hose lower or by adjusting both settings. For her, I advised to Turn hose temperature down to 3 as it could be drying out too much causing the water to run out. She is to then increase humidiy to 5. She is aware how to change settings and to contact [employer] if any problems. Oral dryness can also be reduced by reducing mask leaks. Patient advised that chronic oral dryness can affect dental health and advised to follow up with dentist. In addition, there are oral dryness products that can be used to reduce dryness such as Biotene products, Dry mouth rinse and Xylomelts. Patient to discuss best option with dentist. To improve use of CPAP when has migraines making head scar more sensitive to add a barrier such as a wash cloth. Patient states the migraines come in groups. She has had 3 in the past 3 months. Patient's apnea severity and rationale for treatment to reduce apnea, improve sleep quality and reduce cardiovascular and cerebrovascular events was reviewed. * Change auto CPAP pressure to 16-20 cmH2O * Implement methods to reduce oral dryness. * Notify me if snoring with mask or feeling that the pressure is too much or too little * cloth barrier * Call this office if any problems using CPAP * Return for follow up in 1 month , or sooner if concerns arise Visit Type: Telehealth Phone (to minimize risk of Covid 19 exposure) Patient Location: Home Location of Provider: Home Patient agrees and consents to this telehealth visit type: Yes Patient agrees to have their insurance billed: Yes Time Spent with Patient (minutes): 25 Provider Statement: I spent 100% of the Telehealth Phone Call with the patient with greater than 50% spent counseling the patient and coordination of care.
== END 2019-08-09 15:31 | disposition home or self-care (01) ==
LOC: SC 15:30
PROVIDERS: ATTEND Nurse Practitioner Family
DX: G47.33 Obstructive sleep apnea (adult) (pediatric) (principal)

== ENCOUNTER 2019-10-10 09:10 | Day surgery (SDC) | payer OTHER, MEDICARE ==
[2019-10-10] MEDS ORDERED: fentaNYL 250 MCG/5 ML VIAL IVP ONE (09:11)
[2019-10-10] MEDS ORDERED: MIDAZOLAM 2 MG/2 ML VIAL IVP ONE (09:11)
[2019-10-10] MEDS ORDERED: LACTATED RINGERS 1,000 ML IV ONE ×2 (09:14→12:22)
[2019-10-10 13:29] VITALS: BP 104/71
== END 2019-10-10 09:11 | disposition home or self-care (01) ==
LOC: SDS 09:10
PROVIDERS: ATTEND Surgery
PROC: 0DBL8ZX Excision of Transverse Colon, Via Natural or Artificial Opening Endoscopic, Diagnostic (ICD-10-PCS; principal; 2019-10-10 10:30)
DX: Z12.11 Encounter for screening for malignant neoplasm of colon (principal); D12.3 Benign neoplasm of transverse colon; K57.30 Diverticulosis of large intestine without perforation or abscess without bleeding; G47.33 Obstructive sleep apnea (adult) (pediatric); F17.210 Nicotine dependence, cigarettes, uncomplicated
CPT/HCPCS: 45380; J3010; J7120

== ENCOUNTER 2019-12-26 14:25 | Outpatient (CLI) | payer OTHER, MEDICARE ==
[2019-12-26 19:07] LABS: BASOPHILS # (AUTO) 0.1 10^3/uL (0.0-0.1); BASOPHILS % (AUTO) 0.8 %; EOSINOPHILS # (AUTO) 0.1 10^3/uL (0.0-0.7); HGB - HEMOGLOBIN 14.7 g/dL (12.0-16.0); LYMPHOCYTES # (AUTO) 2.6 10^3/uL (1.5-3.5); LYMPHOCYTES % (AUTO) 26.8 %; MEAN CORPUSCULAR HEMOGLOBIN 29.6 pg (27.0-31.0); MEAN CORPUSCULAR HGB CONC 31.1 g/dL (32.0-36.0); MEAN CORPUSCULAR VOLUME 95.2 fL (81.0-99.0); MEAN PLATELET VOLUME 10.2 fL (7.9-10.8); MONOCYTES # (AUTO) 0.8 10^3/uL (0.0-1.0); MONOCYTES % (AUTO) 7.8 %; NEUTROPHILS # (AUTO) 6.1 10^3/uL (1.5-6.6); NEUTROPHILS % (AUTO) 63.3 %; PLT - PLATELET COUNT 410 10^3/uL (130-450); RED BLOOD COUNT 4.96 10^6/uL (4.20-5.40); RED CELL DISTRIBUTION WIDTH 14.5 % (12.0-15.0); WHITE BLOOD COUNT 9.7 x10^3/uL (4.8-10.8)
[2019-12-26 19:33] LABS: ALBUMIN 4.5 g/dL (3.2-5.5); ALBUMIN/GLOBULIN RATIO 1.6 (1.0-2.2); ALKALINE PHOSPHATASE 75 IU/L (42-121); ALT ALANINE AMINOTRANSFERASE 15 IU/L (10-60); AST ASPARTATE AMINOTRANSFERASE 14 IU/L (10-42); BILIRUBIN,TOTAL 0.7 mg/dL (0.2-1.0); BUN - BLOOD UREA NITROGEN 12 mg/dL (6-20); CALCIUM 9.4 mg/dL (8.5-10.3); CARBON DIOXIDE - CO2 25 mmol/L (21-32); CHLORIDE 100 mmol/L (101-111); CHOL/HDL RATIO 2.6 (<4.4); CHOLESTEROL 199 mg/dL; CREATININE 0.6 mg/dL (0.4-1.0); GLUCOSE 92 mg/dL (70-100); HDL CHOLESTEROL 78 mg/dL; LDL CHOLESTEROL,CALCULATED 107 mg/dL; LDL/HDL RATIO 1.4 (<4.4); SODIUM 136 mmol/L (135-145); TOTAL PROTEIN 7.3 g/dL (6.7-8.2); VLDL CHOLESTEROL 14 mg/dL
[2019-12-26 20:18] LABS: HEMOGLOBIN A1c% 5.7 % (4.27-6.07)
== END 2019-12-26 23:59 | disposition home or self-care (01) ==
LOC: LAB.WCP 14:25
PROVIDERS: ATTEND Physician Assistant
DX: Z79.899 Other long term (current) drug therapy (principal)
CPT/HCPCS: 36415; 80053; 80061; 83036; 83721; 84443; 85025

== ENCOUNTER 2020-08-14 14:26 | Outpatient (CLI) | payer OTHER, MEDICARE ==
--- NOTE | 2020-08-14 16:10 | XRAY Report ---
PROCEDURE: Hand 3 View BILAT INDICATIONS: ARTHRITIS TECHNIQUE: 6 total views of the bilateral hand(s) acquired. COMPARISON: None FINDINGS: Bones: No fractures or dislocations. No suspicious bony lesions. Soft tissues: No suspicious soft tissue calcifications. IMPRESSION: Minimal degenerative osteoarthritis, no erosive arthritis or trauma found. Reviewed by: Enrique Shafer MD on 08/14/2020 4:09 PM PDT Approved by: Enrique Shafer MD on 08/14/2020 4:09 PM PDT Station ID: [id number]
== END 2020-08-14 14:27 | disposition home or self-care (01) ==
LOC: DI.N 14:26
PROVIDERS: ATTEND Physician Assistant Medical
DX: M19.042 Primary osteoarthritis, left hand (principal); M19.041 Primary osteoarthritis, right hand

== ENCOUNTER 2020-12-31 14:03 | Outpatient (CLI) | payer OTHER, MEDICARE ==
--- NOTE | 2021-01-01 15:05 | Mammography Report ---
BILATERAL DIGITAL SCREENING MAMMOGRAM 3D/2D: 12/31/2020 CLINICAL: Routine screening. Comparison is made to exams dated: 05/12/2018 mammogram, 02/09/2017 mammogram, 01/04/2015 mammogram, mammogram, 06/07/2013 mammogram, and 10/14/2012 mammogram - [facility]. There are scattered fibroglandular elements in both breasts. There is a high density asymmetry with an indistinct margin in the left breast middle depth superior region seen on the mediolateral oblique view only. This is more prominent. No other significant masses, calcifications, or other findings are seen in either breast. IMPRESSION: INCOMPLETE: NEEDS ADDITIONAL IMAGING EVALUATION The high density asymmetry in the left breast is indeterminate. Additional views with possible ultra sound are recommended. This exam was interpreted at Station ID: [id number]. NOTE: For mammograms, a report in lay terms will be sent to the patient. Approximately 15% of breast malignancies will not be visualized mammographically. In the management of a palpable breast mass, a negative mammogram must not discourage biopsy of a clinically suspicious lesion. Electronically Signed By: Main Valentin M.D., [email or web address]:12/31/2020 14:46:58 ACR BI-RADS Category 0: Incomplete 3340F PARENCHYMAL PATTERN: (A) - The breast(s) demonstrate(s) scattered fibroglandular densities. BI-RADS CATEGORY: (0) - 0 Mammo and [place] [id number] Immediate follow-up LATERALITY: (B)
== END 2020-12-31 14:04 | disposition home or self-care (01) ==
LOC: DI 14:03
DX: Z12.31 Encounter for screening mammogram for malignant neoplasm of breast (principal); R92.8 Other abnormal and inconclusive findings on diagnostic imaging of breast

== ENCOUNTER 2021-04-23 08:00 | Outpatient (CLI) | payer OTHER, MEDICARE ==
[2021-04-23 18:21] LABS: BASOPHILS # (AUTO) 0.1 10^3/uL (0.0-0.1); BASOPHILS % (AUTO) 1.1 %; EOSINOPHILS # (AUTO) 0.2 10^3/uL (0.0-0.7); EOSINOPHILS % (AUTO) 2.6 %; HCT - HEMATOCRIT 46.8 % (37.0-47.0); LYMPHOCYTES # (AUTO) 2.5 10^3/uL (1.5-3.5); LYMPHOCYTES % (AUTO) 30.1 %; MEAN CORPUSCULAR HEMOGLOBIN 30.1 pg (27.0-31.0); MEAN CORPUSCULAR HGB CONC 32.1 g/dL (32.0-36.0); MEAN PLATELET VOLUME 9.8 fL (7.9-10.8); MONOCYTES # (AUTO) 0.8 10^3/uL (0.0-1.0); MONOCYTES % (AUTO) 10.2 %; NEUTROPHILS # (AUTO) 4.5 10^3/uL (1.5-6.6); NEUTROPHILS % (AUTO) 55.8 %; PLT - PLATELET COUNT 414 10^3/uL (130-450); RED BLOOD COUNT 4.98 10^6/uL (4.20-5.40); RED CELL DISTRIBUTION WIDTH 14.4 % (12.0-15.0); WHITE BLOOD COUNT 8.1 x10^3/uL (4.8-10.8)
[2021-04-23 18:36] LABS: ALBUMIN 4.1 g/dL (3.2-5.5); ALBUMIN/GLOBULIN RATIO 1.4 (1.0-2.2); ALKALINE PHOSPHATASE 75 IU/L (42-121); ALT ALANINE AMINOTRANSFERASE 15 IU/L (10-60); AST ASPARTATE AMINOTRANSFERASE 13 IU/L (10-42); BILIRUBIN,TOTAL 0.5 mg/dL (0.2-1.0); BUN - BLOOD UREA NITROGEN 10 mg/dL (6-20); CALCIUM 9.2 mg/dL (8.5-10.3); CARBON DIOXIDE - CO2 30 mmol/L (21-32); CHLORIDE 103 mmol/L (101-111); CHOL/HDL RATIO 2.5 (<4.4); CHOLESTEROL 195 mg/dL; CREATININE 0.5 mg/dL (0.4-1.0); GFR - MDRD 126 (>89); GLUCOSE 106 mg/dL (70-100); HDL CHOLESTEROL 77 mg/dL; LDL CHOLESTEROL,CALCULATED 101 mg/dL; LDL/HDL RATIO 1.3 (<4.4); POTASSIUM 4.6 mmol/L (3.5-5.0); SODIUM 140 mmol/L (135-145); TRIGLYCERIDES 86 mg/dL; VLDL CHOLESTEROL 17 mg/dL
[2021-04-23 18:49] LABS: THYROID STIMULATING HORMONE 1.93 uIU/mL (0.34-5.60)
== END 2021-04-23 23:59 ==
LOC: LAB.WCP 08:00
PROVIDERS: ATTEND Physician Assistant Medical
DX: Z00.00 Encounter for general adult medical examination without abnormal findings (principal); R73.9 Hyperglycemia, unspecified; Z79.899 Other long term (current) drug therapy
CPT/HCPCS: 36415; 80053; 80061; 83721; 84443; 85025

== ENCOUNTER 2022-07-29 13:55 | Outpatient (CLI) | payer OTHER, MEDICARE ==
[2022-07-29 17:57] LABS: BASOPHILS # (AUTO) 0.1 10^3/uL (0.0-0.1); BASOPHILS % (AUTO) 0.9 %; EOSINOPHILS # (AUTO) 0.1 10^3/uL (0.0-0.7); EOSINOPHILS % (AUTO) 1.5 %; HGB - HEMOGLOBIN 15.4 g/dL (12.0-16.0); LYMPHOCYTES # (AUTO) 2.5 10^3/uL (1.5-3.5); LYMPHOCYTES % (AUTO) 31.8 %; MEAN CORPUSCULAR HEMOGLOBIN 29.4 pg (27.0-31.0); MEAN CORPUSCULAR HGB CONC 31.4 g/dL (32.0-36.0); MEAN CORPUSCULAR VOLUME 93.7 fL (81.0-99.0); MEAN PLATELET VOLUME 10.5 fL (7.9-10.8); MONOCYTES # (AUTO) 0.7 10^3/uL (0.0-1.0); MONOCYTES % (AUTO) 8.6 %; NEUTROPHILS # (AUTO) 4.4 10^3/uL (1.5-6.6); NEUTROPHILS % (AUTO) 56.9 %; PLT - PLATELET COUNT 428 10^3/uL (130-450); RED BLOOD COUNT 5.23 10^6/uL (4.20-5.40); RED CELL DISTRIBUTION WIDTH 13.2 % (12.0-15.0); WHITE BLOOD COUNT 7.8 x10^3/uL (4.8-10.8)
[2022-07-29 18:01] LABS: ALBUMIN 4.4 g/dL (3.2-5.5); ALBUMIN/GLOBULIN RATIO 1.4 (1.0-2.2); ALKALINE PHOSPHATASE 75 IU/L (42-121); ALT ALANINE AMINOTRANSFERASE 18 IU/L (10-60); AST ASPARTATE AMINOTRANSFERASE 14 IU/L (10-42); BILIRUBIN,TOTAL 0.6 mg/dL (0.2-1.0); BUN - BLOOD UREA NITROGEN 15 mg/dL (6-20); CALCIUM 9.2 mg/dL (8.5-10.3); CARBON DIOXIDE - CO2 27 mmol/L (21-32); CHLORIDE 101 mmol/L (101-111); CHOL/HDL RATIO 3.3 (<4.4); CHOLESTEROL 226 mg/dL; CREATININE 0.6 mg/dL (0.4-1.0); GFR - MDRD 102 (>89); GLUCOSE 100 mg/dL (70-100); HDL CHOLESTEROL 69 mg/dL; LDL CHOLESTEROL,CALCULATED 133 mg/dL; LDL/HDL RATIO 1.9 (<4.4); POTASSIUM 4.4 mmol/L (3.5-5.0); SODIUM 136 mmol/L (135-145); TOTAL PROTEIN 7.5 g/dL (6.7-8.2); TRIGLYCERIDES 118 mg/dL; VLDL CHOLESTEROL 24 mg/dL
[2022-07-29 18:15] LABS: THYROID STIMULATING HORMONE 2.41 uIU/mL (0.34-5.60)
[2022-07-29 18:19] LABS: FERRITIN 29.7 ng/mL (11.0-306.8)
== END 2022-07-29 13:56 | disposition home or self-care (01) ==
LOC: LAB.N 13:55
PROVIDERS: ATTEND Physician Assistant Medical
DX: Z00.00 Encounter for general adult medical examination without abnormal findings (principal); R53.83 Other fatigue
CPT/HCPCS: 36415; 80053; 80061; 82306; 82607; 82728; 83721; 84443; 85025

== ENCOUNTER 2022-10-04 09:30 | Outpatient (CLI) | payer MEDICARE ==
--- NOTE | 2022-10-04 10:00 | CT Report ---
PROCEDURE: Low Dose Lung Cancer Screen INDICATIONS: SMOKER TECHNIQUE: A CT scan of the chest was performed. Intravenous contrast media was not administered. Images were re corded and evaluated at appropriate window settings. Reformats: axial MIP of the chest, coronal and s agittal. For radiation dose reduction, the following was used: automated exposure control, adjustment of mA and/or kV according to patient size. COMPARISON: None. FINDINGS: Image quality: Excellent. Lungs and pleura: Left hemidiaphragm is elevated No pleural effusions. No pneumothorax. No suspiciou s pulmonary nodules which require follow up. Mediastinum: Heart size is normal. No pericardial effusion. No large vessel abnormality. No mediastin al adenopathy by size criteria. Chest wall and lower neck: Thyroid is unremarkable. No axillary or supraclavicular adenopathy by size . Bones: No aggressive osseous abnormality. Upper Abdomen: Unremarkable. IMPRESSION: 1. Lung RADS 1. Repeat screening chest CT in one year is recommended. 2. Left hemidiaphragm elevation. Reviewed by: Sherlyn Abdi MD on 10/04/2022 9:59 AM PDT Approved by: Sherlyn Abdi MD on 10/04/2022 9:59 AM PDT Station ID: [id number]
--- NOTE | 2022-10-04 10:24 | Ultrasound Report ---
PROCEDURE: Aorta Screening INDICATIONS: SMOKER TECHNIQUE: Real time scanning was performed of the aorta and iliac arteries, with image documentatio n. COMPARISON: None. FINDINGS: Aorta: Proximal aortic diameter measures 2.6 cm. Mid-aorta measures 2.0 cm. Distal aortic diameter is 1.9 cm. Iliac arteries: Right common iliac artery measures 0.8 cm. Left common iliac artery measures 0.8 cm . IMPRESSION: No evidence of aortoiliac aneurysm Reviewed by: Sherlyn Abdi MD on 10/04/2022 10:23 AM PDT Approved by: Sherlyn Abdi MD on 10/04/2022 10:23 AM PDT Station ID: [id number]
== END 2022-10-04 09:31 | disposition home or self-care (01) ==
LOC: DI 09:30
PROVIDERS: ATTEND Physician Assistant Medical
DX: Z12.2 Encounter for screening for malignant neoplasm of respiratory organs (principal); Z13.6 Encounter for screening for cardiovascular disorders; F17.210 Nicotine dependence, cigarettes, uncomplicated

== ENCOUNTER 2022-12-18 12:20 | Outpatient (CLI) | payer OTHER | END 2022-12-18 12:21 | disposition EMS.NT | LOC: EMS 12:20 | DX: R45.89 Other symptoms and signs involving emotional state (principal); R55 Syncope and collapse ==

== ENCOUNTER 2023-09-15 14:05 | Outpatient (CLI) | payer OTHER ==
[2023-09-15 17:46] LABS: BASOPHILS # (AUTO) 0.1 10^3/uL (0.0-0.1); EOSINOPHILS # (AUTO) 0.2 10^3/uL (0.0-0.7); EOSINOPHILS % (AUTO) 2.5 %; HCT - HEMATOCRIT 46.9 % (37.0-47.0); HGB - HEMOGLOBIN 14.7 g/dL (12.0-16.0); LYMPHOCYTES # (AUTO) 2.3 10^3/uL (1.5-3.5); LYMPHOCYTES % (AUTO) 28.2 %; MEAN CORPUSCULAR HEMOGLOBIN 30.8 pg (27.0-31.0); MEAN CORPUSCULAR HGB CONC 31.3 g/dL (32.0-36.0); MEAN CORPUSCULAR VOLUME 98.3 fL (81.0-99.0); MEAN PLATELET VOLUME 10.5 fL (7.9-10.8); MONOCYTES # (AUTO) 0.7 10^3/uL (0.0-1.0); MONOCYTES % (AUTO) 8.7 %; NEUTROPHILS # (AUTO) 4.8 10^3/uL (1.5-6.6); NEUTROPHILS % (AUTO) 59.4 %; PLT - PLATELET COUNT 399 10^3/uL (130-450); RED BLOOD COUNT 4.77 10^6/uL (4.20-5.40); RED CELL DISTRIBUTION WIDTH 14.1 % (12.0-15.0); WHITE BLOOD COUNT 8.1 x10^3/uL (4.8-10.8)
[2023-09-15 17:54] LABS: ALBUMIN 4.5 g/dL (3.2-5.5); ALBUMIN/GLOBULIN RATIO 2.5 (1.0-2.2); ALKALINE PHOSPHATASE 64 IU/L (42-121); ALT ALANINE AMINOTRANSFERASE 9 IU/L (10-60); AST ASPARTATE AMINOTRANSFERASE 10 IU/L (10-42); BILIRUBIN,TOTAL 0.5 mg/dL (0.2-1.0); BUN - BLOOD UREA NITROGEN 10 mg/dL (6-20); CALCIUM 9.8 mg/dL (8.5-10.3); CARBON DIOXIDE - CO2 31 mmol/L (21-32); CHLORIDE 104 mmol/L (101-111); CHOL/HDL RATIO 2.8 (<4.4); CHOLESTEROL 193 mg/dL; CREATININE 0.6 mg/dL (0.6-1.3); GFR - MDRD 102 (>89); GLUCOSE 114 mg/dL (74-104); HDL CHOLESTEROL 70 mg/dL; LDL CHOLESTEROL,CALCULATED 94 mg/dL; LDL/HDL RATIO 1.3 (<4.4); POTASSIUM 4.3 mmol/L (3.5-4.5); SODIUM 140 mmol/L (135-145); TOTAL PROTEIN 6.3 g/dL (6.4-8.9); TRIGLYCERIDES 145 mg/dL (48-352); VLDL CHOLESTEROL 29 mg/dL
[2023-09-15 18:08] LABS: THYROID STIMULATING HORMONE 1.65 uIU/mL (0.34-5.60)
== END 2023-09-15 14:06 | disposition home or self-care (01) ==
LOC: LAB.N 14:05
PROVIDERS: ATTEND Physician Assistant Medical
DX: Z00.00 Encounter for general adult medical examination without abnormal findings (principal)
CPT/HCPCS: 36415; 80053; 80061; 83721; 84443; 85025